=== PATIENT | female | born 1960 | race Caucasian/White ===

== ENCOUNTER 2017-09-11 13:11 | Emergency (ER) | payer BC ==
[2017-09-11] MEDS ORDERED: ATEN-1 PO (13:26)
[2017-09-11] MEDS ORDERED: NS(*) 0.9% 1000 ML BAG 1,000 ML IV ONE (13:33)
[2017-09-11] MEDS ORDERED: ONDANSETRON 4 MG/2 ML VIAL IVP ONE (13:35)
[2017-09-11] MEDS ORDERED: HYDROmorphone* 1 MG/ML 1 MG/ML ML IVP ONE (13:35)
[2017-09-11] MEDS ORDERED: diphenhydrAMINE 50 MG/ML VIAL IVP ONE (13:35)
--- NOTE | 2017-09-11 13:52 | ER Report ---
History and Physical Time Seen By MD: 13:36 Hx. of Stated Complaint: PT IS VISITING FROM [place], STARTED EXPERIENCING SHORTNESS OF BREATH AROUND 10PM LAST NIGHT, FELT NAUSEOUS AND WENT TO BED. WOKE UP IN THE MIDDLE OF THE NIGHT WITH A HORRIBLE HEACHACHE- NO RELIEF WITH IBUPROFEN. PT STATES SHE HAS BEEN THROWING UP ON AND OFF SINCE LAST NIGHT, AND FEELS VERY DIZZY HPI/ROS CHIEF COMPLAINT: Headache, nausea, generalized malaise and dizziness HISTORY OF PRESENT ILLNESS: Patient is a 57-year-old female with past medical history significant for hypertension for which she takes lisinopril. She is here visiting from [place], [place] ([address] [place]) was constant to [place] and arrived approximately 24 hours ago. She states that around 10 PM last night she began having a queasy stomach and then in the middle of the night woke with a severe headache. The headache is persistent. It seems to be nonexertional. It initially was located in the entire aspect of the head but now is concentrated more to the occiput. She denies any falls or trauma. Patient states that she's been to altitude before and never experienced altitude sickness. She denies any fevers or chills she denies any neck stiffness. She denies any chest pain or respiratory distress. She denies having similar episodes in the past. REVIEW OF SYSTEMS: Constitutional: No fever, no chills. Generalized malaise Eyes: No discharge. ENT: No sore throat. Cardiovascular: No chest pain, no palpitations. Respiratory: No cough, no shortness of breath. Gastrointestinal: Nausea Genitourinary: No hematuria. Musculoskeletal: No back pain. Skin: No rashes. Neurological: Headache Allergies: Coded Allergies: Penicillins (Verified Allergy, Unknown, 09/11/17) Sulfa (Sulfonamide Antibiotics) (Verified Allergy, Unknown, 09/11/17) amoxicillin (Verified Allergy, Unknown, RASH , 09/11/17) codeine (Verified Allergy, Unknown, RASH , 09/11/17) Home Meds Active Scripts Acetazolamide (ACETAZOLAMIDE) 250 Mg Tablet, 250 MG PO BID, #6 TAB 0 Refills Prov:ADDIS THOMPSON MD 09/11/17 Naproxen (NAPROXEN) 375 Mg Tablet.dr, 375 MG PO TID for PAIN, #20 TAB 0 Refills Prov:ADDIS THOMPSON MD 09/11/17 Ondansetron Hcl (ZOFRAN) 4 Mg Tablet, 4 MG PO Q8H for Nausea, #15 TAB 0 Refills Prov:ADDIS THOMPSON MD 09/11/17 Reported Medications Atenolol (ATENOLOL) 50 Mg Tablet, 0.5 TAB PO QDAY, TAB 09/11/17 Past Medical/Surgical History Hypertension Hx Substance Use Disorder: No Hx Alcohol Use: No Constitutional Vital Sign - Last 24 Hours 09/11/17 09/11/17 09/11/17 09/11/17 13:17 14:00 14:05 14:10 Temp 97.8 Pulse 74 68 61 62 Resp 18 12 7 5 B/P (MAP) 147/88 138/82 (100) Pulse Ox 94 90 93 95 O2 Delivery Room Air 09/11/17 09/11/17 09/11/17 09/11/17 14:15 14:20 14:25 14:30 Pulse 61 60 ? Resp 9 8 B/P (MAP) 148/87 (107) Pulse Ox 96 96 09/11/17 09/11/17 09/11/17 09/11/17 14:35 14:40 14:45 14:50 Pulse 58 68 66 62 Resp 9 14 10 Pulse Ox 97 97 90 09/11/17 14:55 Pulse 57 Resp 10 Pulse Ox 97 Physical Exam General Appearance: The patient is alert, has no immediate need for airway protection and no signs of toxicity. Eyes: Pupils equal and round no pallor or injection. ENT, Mouth: Mucous membranes are moist. Respiratory: There are no retractions, lungs are clear to auscultation. Cardiovascular: Regular rate and rhythm. Gastrointestinal: Abdomen is soft and non tender, no masses, bowel sounds normal. Neurological: GCS is 15 patient is awake and alert patient has no pronator drift. No ataxia is noted Skin: Warm and dry, no rashes. Musculoskeletal: Neck is supple non tender. Extremities are nontender, nonswollen and have full range of motion. Medical Decision Making Data Points Result Diagram: 09/11/17 1348 09/11/17 1348 Laboratory Hematology Test 09/11/17 13:48 Red Blood Count 5.01 M/uL (4.17-5.56) Mean Corpuscular Volume 90.7 fL (80.0-96.0) Mean Corpuscular Hemoglobin 31.4 pg (26.0-33.0) Mean Corpuscular Hemoglobin Concent 34.6 g/dL (32.0-36.0) Red Cell Distribution Width 14.1 % (11.5-14.5) Mean Platelet Volume 8.4 fL (7.2-11.1) Neutrophils (%) (Auto) 62.6 % (39.4-72.5) Lymphocytes (%) (Auto) 29.1 % (17.6-49.6) Monocytes (%) (Auto) 6.3 % (4.1-12.4) Eosinophils (%) (Auto) 1.0 % (0.4-6.7) Basophils (%) (Auto) 1.0 % (0.3-1.4) Nucleated RBC Relative Count (auto) 0.3 /100WBC Neutrophils # (Auto) 6.0 K/uL (2.0-7.4) Lymphocytes # (Auto) 2.8 K/uL (1.3-3.6) Monocytes # (Auto) 0.6 K/uL (0.3-1.0) Eosinophils # (Auto) 0.1 K/uL (0.0-0.5) Basophils # (Auto) 0.1 K/uL (0.0-0.1) Nucleated RBC Absolute Count (auto) 0.03 K/uL Peripheral Blood Smear No Y/N Sodium Level 141 mmol/L (137-145) Potassium Level 4.0 mmol/L (3.5-5.0) Chloride Level 108 mmol/L (98-107) Carbon Dioxide Level 24 mmol/L (22-31) Blood Urea Nitrogen 12 mg/dl (7-18) Creatinine 0.60 mg/dl (0.52-1.04) Glomerular Filtration Rate Calc > 60.0 Random Glucose 99 mg/dl (75-110) Calcium Level 9.3 mg/dl (8.4-10.2) Total Bilirubin 0.9 mg/dl (0.2-1.3) Aspartate Amino Transf (AST/SGOT) 63 U/L (0-35) Alanine Aminotransferase (ALT/SGPT) 135 U/L (0-56) Alkaline Phosphatase 68 U/L (0-126) Total Protein 7.2 g/dl (6.3-8.2) Albumin 3.9 g/dl (3.5-5.0) Chemistry Test 09/11/17 13:48 White Blood Count 9.6 k/uL (4.5-11.0) Red Blood Count 5.01 M/uL (4.17-5.56) Hemoglobin 15.7 g/dL (12.0-16.0) Hematocrit 45.4 % (34.0-47.0) Mean Corpuscular Volume 90.7 fL (80.0-96.0) Mean Corpuscular Hemoglobin 31.4 pg (26.0-33.0) Mean Corpuscular Hemoglobin Concent 34.6 g/dL (32.0-36.0) Red Cell Distribution Width 14.1 % (11.5-14.5) Platelet Count 216 K/uL (150-450) Mean Platelet Volume 8.4 fL (7.2-11.1) Neutrophils (%) (Auto) 62.6 % (39.4-72.5) Lymphocytes (%) (Auto) 29.1 % (17.6-49.6) Monocytes (%) (Auto) 6.3 % (4.1-12.4) Eosinophils (%) (Auto) 1.0 % (0.4-6.7) Basophils (%) (Auto) 1.0 % (0.3-1.4) Nucleated RBC Relative Count (auto) 0.3 /100WBC Neutrophils # (Auto) 6.0 K/uL (2.0-7.4) Lymphocytes # (Auto) 2.8 K/uL (1.3-3.6) Monocytes # (Auto) 0.6 K/uL (0.3-1.0) Eosinophils # (Auto) 0.1 K/uL (0.0-0.5) Basophils # (Auto) 0.1 K/uL (0.0-0.1) Nucleated RBC Absolute Count (auto) 0.03 K/uL Peripheral Blood Smear No Y/N Glomerular Filtration Rate Calc > 60.0 Calcium Level 9.3 mg/dl (8.4-10.2) Total Bilirubin 0.9 mg/dl (0.2-1.3) Aspartate Amino Transf (AST/SGOT) 63 U/L (0-35) Alanine Aminotransferase (ALT/SGPT) 135 U/L (0-56) Alkaline Phosphatase 68 U/L (0-126) Total Protein 7.2 g/dl (6.3-8.2) Albumin 3.9 g/dl (3.5-5.0) ED Course/Re-evaluation Clinical Indication for ER IV: Hydration, IV Access ED Course 09/11/2017 1:51:36 pm plan at this time will be to perform CBC CMP we'll perform noncontrast CT of the head. We will also give IV Dilaudid and Zofran along with some Benadryl for pain and nausea. Re-evaluation 09/11/2017 2:37:05 pm patient feeling improved status post IV fluids as well as pain and nausea medicines. CT scan pending. Patient did ambulate around the emergency department without any balance issues. Decision to Disposition Date: Sep 11, 2017 Decision to Disposition Time: 15:00 Depart Departure Latest Vital Signs Vital Signs Date Time Temp Pulse Resp B/P (MAP) Pulse Ox O2 Delivery O2 Flow Rate FiO2 09/11/17 14:55 57 10 97 09/11/17 14:30 148/87 (107) 09/11/17 13:17 97.8 Room Air Impression: Primary Impression: Headache Additional Impression: Nausea Condition: Improved Disposition: HOME OR SELF-CARE New Scripts Acetazolamide (ACETAZOLAMIDE) 250 Mg Tablet 250 MG PO BID, #6 TAB 0 Refills Prov: ADDIS THOMPSON MD 09/11/17 Naproxen (NAPROXEN) 375 Mg Tablet.dr 375 MG PO TID for PAIN, #20 TAB 0 Refills Prov: ADDIS THOMPSON MD 09/11/17 Ondansetron Hcl (ZOFRAN) 4 Mg Tablet 4 MG PO Q8H for Nausea, #15 TAB 0 Refills Prov: ADDIS THOMPSON MD 09/11/17 Patient Instructions: [place] Sickness (ED) Problem Qualifiers Primary Impression: Headache Headache type: unspecified Headache chronicity pattern: unspecified pattern Intractability: not intractable Qualified Codes: R51 - Headache ADDIS THOMPSON MD Sep 11, 2017 13:52
[2017-09-11 13:53] LABS: PLATELET COUNT, AUTOMATED 216 K/uL (150-450)
[2017-09-11 14:30] VITALS: BP 148/87
[2017-09-11] MEDS ORDERED: NAPR-731 PO (14:49)
[2017-09-11] MEDS ORDERED: ONDA4TAB97 PO (14:49)
--- NOTE | 2017-09-11 14:55 | RADIOLOGY IMAGING REPORT ---
FACILITY: [facility] PATIENT NAME: Cammie Zhong : 1960 MR: [id number] V: [id number] EXAM DATE: ORDERING PHYSICIAN: ADDIS THOMPSON TECHNOLOGIST: Location: [facility] Patient: Cammie Zhong : 1960 Visit/Account:[id number] Date of Sevice: 09/11/2017 EXAMINATION: CT head without IV contrast HISTORY: Headache. COMPARISON: None. TECHNIQUE: Contiguous axial images were obtained from the skull base to the vertex without intraven ous contrast. Sagittal and coronal reformatted images are also submitted. One of the following dose optimization techniques was utilized in the performance of this exam: Autom ated exposure control; adjustment of the mA and/or kV according to the patient's size; or use of an i terative reconstruction technique. Specific details can be referenced in the facility's radiology C T exam operational policy. FINDINGS: Brain volume: Normal. Ventricles: Normal. Acute ischemic changes: None. Hemorrhage: No acute intracranial hemorrhage. Masses/edema: None. Mendez-white: Negative. White matter: Normal. Vessels: Calcified plaque of both carotid siphons. Extra-axial: Negative. Calvarium/scalp: Negative. Skull base/visualized face: Negative. Visualized sinuses/orbits: Nasal septal deviation to the left. IMPRESSION: No intracranial mass lesion or hemorrhage. No CT evidence of acute infarct. Report Dictated By: Ayla Conteh MD at 09/11/2017 2:50 PM Report E-Signed By: Ayla Conteh MD at 09/11/2017 2:52 PM WSN:[id number]
[2017-09-11] MEDS ORDERED: ACET250T19 PO (15:00)
== END 2017-09-11 15:20 | disposition home or self-care (01) ==
LOC: ER 13:14
DX: R51 Headache (principal)
CPT/HCPCS: 70450; 85025; 96361; 96374; 96375; 99284; J1170; J1200; J2405; J7030; 82040; 82247; 82310; 82374; 82435; 82565; 82947; 84075; 84132; 84155; 84295; 84450; 84460; 84520